=== PATIENT | female | born 1995 | race American Indian/Alaskan Native ===

== ENCOUNTER 2020-07-07 06:27 | Emergency (ER) | payer MEDICAID ==
[2020-07-07 06:52] VITALS: BP 130/70
[2020-07-07 07:38] LABS: HCG Qualitative,Urine Negative (Negative)
[2020-07-07 07:40] LABS: Bilirubin,Urine NEG (Negative); Blood,Urine SM (Negative); Color,Urine Amber (Yellow); Mucus,Urine FEW /HPF
[2020-07-07 07:41] LABS: WBC,Urine > 182.0 /HPF (0.0-6.0)
--- NOTE | 2020-07-07 08:27 | Emergency Department Report ---
<LIV GARCIA - Last Filed: 07/07/20 14:44> ED Female HPI - General Chief complaint: Abdominal Pain Stated complaint: POSSIBLE UTI Time Seen by Provider: 07/07/20 07:18 Source: patient Mode of arrival: Ambulatory Limitations: No Limitations - History of Present Illness Initial comments: 25-year-old obese female she states " I have a UTI". Patient states she woke up at 4:30 this morning with pain to the bottom of her stomach and since then she is having urinary frequency and voiding small amounts. She reports a history of urinary tract infections states that her last one was 1 year ago. Patient denies nausea, vomiting, fever chills, vaginal discharge, chest pain and shortness of breath. She is currently pain-free and in no acute distress. Her last menstrual period was on June 30, 2020 Radiation: suprapubic Severity scale (0 -10): 3 Quality: aching, other (Discomfort) Improves with: none Worsens with: none Are you Now?: No Associated Symptoms: denies other symptoms, abdominal pain, dysuria. denies: vaginal discharge, vaginal bleeding, nausea/vomiting, fever/chills, headaches, loss of appetite, hematuria, rash, seizure, shortness of breath, syncope, weakness - Related Data Sexually active: Yes Previous Rx's Medication Instructions Recorded Last Taken Type cephALEXin [Keflex] 500 mg PO Q12HR 7 Days #14 cap 07/07/20 Unknown Rx Allergies Allergy/AdvReac Type Severity Reaction Status Date / Time No Known Allergies Allergy Unverified 07/07/20 06:56 ED Review of Systems Comment: All other systems reviewed and negative Constitutional: denies: no symptoms reported, chills, fever ENT: denies: ear pain, throat pain, dental pain, hearing loss, epistaxis Respiratory: no symptoms reported Cardiovascular: denies: chest pain, palpitations, dyspnea on exertion, orthopnea Endocrine: no symptoms reported Gastrointestinal: denies: abdominal pain, nausea, vomiting, constipation Genitourinary: dysuria, frequency. denies: discharge Musculoskeletal: denies: back pain Skin: denies: rash, lesions Neurological: denies: headache, weakness Psychiatric: denies: anxiety, depression ED Past Medical Hx - Past Medical History Previous Medical History?: No - Surgical History Past Surgical History?: No - Social History Smoking Status: Never Smoker Substance Use Type: None - Medications Home Medications: Home Medications Medication Instructions Recorded Confirmed Last Taken Type cephALEXin [Keflex] 500 mg PO Q12HR 7 Days #14 cap 07/07/20 Unknown Rx ED Physical Exam - General Limitations: No Limitations General appearance: alert, in no apparent distress - Head Head exam: Present: atraumatic - Eye Eye exam: Present: normal appearance - ENT ENT exam: Present: normal exam, mucous membranes moist. Absent: TM's normal bilaterally - Respiratory Respiratory exam: Present: normal lung sounds bilaterally. Absent: respiratory distress, wheezes, rales, rhonchi - Cardiovascular Cardiovascular Exam: Present: regular rate, normal rhythm - GI/Abdominal GI/Abdominal exam: Present: soft, normal bowel sounds. Absent: distended, tenderness, guarding, rebound, rigid - Rectal Rectal exam: Present: deferred - Extremities Exam Extremities exam: Present: normal inspection, normal capillary refill - Back Exam Back exam: Present: normal inspection. Absent: CVA tenderness (R) - Neurological Exam Neurological exam: Present: alert, oriented X3 - Psychiatric Psychiatric exam: Present: normal affect - Skin Skin exam: Present: warm, dry, intact, normal color ED Course - Reevaluation(s) Reevaluation #1: 07/07/20 08:30 Well-appearing 25-year-old female in no distress note denies any pain at this time ED Medical Decision Making - Medical Decision Making 25-year-old female with a 4-hour complaint of feeling discomfort to her suprapubic region of her abdomen accompanied by urinary frequency and urgency and dysuria. Her exam is normal urine shows urinary tract infection. Urine culture pending. She will be discharged home with oral antibiotics increase fluids. And to decrease her soda intake Critical Care Time: No ED Disposition Clinical Impression: Urinary tract infection Qualifiers: Urinary tract infection type: acute cystitis Hematuria presence: with hematuria Qualified Code(s): N30.01 - Acute cystitis with hematuria Disposition: TO HOME OR SELFCARE Is pt being admited?: No Does the pt Need Aspirin: No Condition: Stable Instructions: Antibiotic Medicine, Adult, [id number], Urinary Tract Infection, Adult, Abdominal Pain (ED) Additional Instructions: Drink plenty fluids decrease your soda intake do not hold your urine for pee after sex. Follow-up with your primary care doctor if no improvement or for any worsening symptoms. Take all of the antibiotics as prescribed Prescriptions: cephALEXin [Keflex] 500 mg PO Q12HR 7 Days #14 cap Referrals: PRIMARY MD JOSE [Primary Care Provider] - 3-5 Days MICHAEL CLARKE MD [Staff Physician] - 3-5 Days Time of Disposition: 08:33 <LYLYAMIE - Last Filed: 07/08/20 06:35> ED Review of Systems ROS: Stated complaint: POSSIBLE UTI Other details as noted in HPI ED Course Vital Signs 07/07/20 07/07/20 07/07/20 06:51 08:30 08:57 Temperature 97.9 F Pulse Rate 80 85 Respiratory 16 18 18 Rate Blood Pressure 130/70 O2 Sat by Pulse 98 99 99 Oximetry Critical care attestation.: If time is entered above; I have spent that time in minutes in the direct care of this critically ill patient, excluding procedure time. ED Disposition Is pt being admited?: No Does the pt Need Aspirin: No
== END 2020-07-07 08:55 | disposition home or self-care (01) ==
LOC: ED 06:27
DX: N39.0 Urinary tract infection, site not specified (principal); Z79.899 Other long term (current) drug therapy
CPT/HCPCS: 81001; 81025; 87086

== ENCOUNTER 2020-11-02 22:58 | Emergency (ER) | payer MEDICAID ==
[2020-11-03] MEDS ORDERED: AMOXICILLIN/K CLAV 875/125MG TAB PO ONE (03:56)
[2020-11-03] MEDS ORDERED: ACETAMINOPHEN 500 MG TAB PO ONE (03:56)
[2020-11-03] MEDS ORDERED: dexAMETHasone 20 MG/5 ML VIAL IM ONE (03:56)
[2020-11-03] MEDS ORDERED: LIDOCAINE VISCOUS 2% 15 ML ORAL LIQD PO ONE (03:56)
[2020-11-03] MEDS ORDERED: KETOROLAC 30 MG/1 ML INJ IM ONE (03:56)
--- NOTE | 2020-11-03 05:05 | Emergency Department Report ---
ED General Adult HPI - General Chief complaint: Sore Throat Stated complaint: THROAT AND EAR PAIN Source: patient Mode of arrival: Ambulatory Limitations: No Limitations - History of Present Illness Initial comments: Patient is a 25-year-old -[place] female with no past medical history presents to the ED with complaint of acute onset persistent severe sore throat with dysphagia and neck pain for the last 1 week. Patient states that she has been taking [id number] medication with no relief. Patient states that she has not eaten any food in the last 2 days because of worsening sore throat. Patient states that no one else at home is at similar symptoms. Patient denies dizziness, syncope, fever, chills, cough, nasal and sinus congestion, chest pain or shortness of breath, abdominal pain, dysuria, urinary frequency and urgency, nausea and vomiting or diarrhea. MD Complaint: Sore throat, dysphagia; neck pain -: Sudden, week(s) (1) Location: mouth Radiation: non-radiation Severity scale (0 -10): 9 Quality: aching, sharp Consistency: constant Improves with: none Worsens with: eating Associated Symptoms: denies other symptoms, loss of appetite, malaise. denies: confusion, chest pain, cough, diaphoresis, fever/chills, headaches, nausea/vomiting, rash, shortness of breath, syncope, weakness, other Treatments Prior to Arrival: none - Related Data Previous Rx's Medication Instructions Recorded Last Taken Type cephALEXin [Keflex] 500 mg PO Q12HR 7 Days #14 cap 07/07/20 Unknown Rx Ibuprofen [Motrin] 800 mg PO Q8HR PRN #30 tablet 11/03/20 Unknown Rx Lidocaine Viscous 2% 10 ml PO Q4H PRN #120 ml 11/03/20 Unknown Rx Penicillin V Potassium 500 mg PO Q6H #40 tablet 11/03/20 Unknown Rx predniSONE [Deltasone] 40 mg PO QDAY #10 tab 11/03/20 Unknown Rx Allergies Allergy/AdvReac Type Severity Reaction Status Date / Time No Known Allergies Allergy Unverified 07/07/20 06:56 ED Review of Systems ROS: Stated complaint: THROAT AND EAR PAIN Other details as noted in HPI Constitutional: denies: chills, fever Eyes: denies: eye pain, eye discharge, vision change ENT: throat pain (Sore throat with dysphagia). denies: ear pain Respiratory: denies: cough, shortness of breath, wheezing Cardiovascular: denies: chest pain, palpitations Endocrine: no symptoms reported Gastrointestinal: denies: abdominal pain, nausea, diarrhea Genitourinary: denies: urgency, dysuria, discharge Musculoskeletal: denies: back pain, joint swelling, arthralgia Skin: denies: rash, lesions Neurological: denies: headache, weakness, paresthesias Psychiatric: denies: anxiety, depression Hematological/Lymphatic: denies: easy bleeding, easy bruising ED Past Medical Hx - Past Medical History Previous Medical History?: No - Surgical History Past Surgical History?: No - Social History Smoking Status: Never Smoker Substance Use Type: None - Medications Home Medications: Home Medications Medication Instructions Recorded Confirmed Last Taken Type cephALEXin [Keflex] 500 mg PO Q12HR 7 Days #14 cap 07/07/20 Unknown Rx Ibuprofen [Motrin] 800 mg PO Q8HR PRN #30 tablet 11/03/20 Unknown Rx Lidocaine Viscous 2% 10 ml PO Q4H PRN #120 ml 11/03/20 Unknown Rx Penicillin V Potassium 500 mg PO Q6H #40 tablet 11/03/20 Unknown Rx predniSONE [Deltasone] 40 mg PO QDAY #10 tab 11/03/20 Unknown Rx ED Physical Exam - General Limitations: No Limitations General appearance: alert, in no apparent distress - Head Head exam: Present: atraumatic, normocephalic, normal inspection - Eye Eye exam: Present: normal appearance, PERRL, EOMI Pupils: Present: normal accommodation - ENT ENT exam: Present: mucous membranes moist, TM's normal bilaterally, normal external ear exam, other (Erythematous oropharynx with mildly swollen tonsils with patchy white exudates) - Neck Neck exam: Present: normal inspection, full ROM, lymphadenopathy. Absent: tenderness - Respiratory Respiratory exam: Present: normal lung sounds bilaterally. Absent: respiratory distress, wheezes, rales, rhonchi, chest wall tenderness, accessory muscle use, decreased breath sounds, prolonged expiratory - Cardiovascular Cardiovascular Exam: Present: regular rate, normal rhythm. Absent: systolic murmur, diastolic murmur, rubs, gallop - GI/Abdominal GI/Abdominal exam: Present: soft, normal bowel sounds - Extremities Exam Extremities exam: Present: normal inspection - Back Exam Back exam: Present: normal inspection - Neurological Exam Neurological exam: Present: alert, oriented X3 - Psychiatric Psychiatric exam: Present: normal affect, normal mood - Skin Skin exam: Present: warm, dry, intact, normal color. Absent: rash ED Course Vital Signs 11/03/20 11/03/20 11/03/20 03:14 04:12 04:15 Temperature 98 F Pulse Rate 74 Respiratory 18 18 18 Rate Blood Pressure 134/77 [Left] O2 Sat by Pulse 100 Oximetry ED Medical Decision Making - Medical Decision Making This is a 25-year-old -[place] female with no past medical history presents to the ED with complaint of acute onset persistent severe sore throat with dysphagia and neck pain for the last 1 week. Patient states that she has been taking [id number] medication with no relief. Patient states that she has not eaten any food in the last 2 days because of worsening sore throat. Patient states that no one else at home is at similar symptoms. In the ED, patient is alert and oriented x3 and is not in distress but appears uncomfortable in the physical exam. Patient was treated in the ED based on the physical exam findings in the oropharynx without any suggestive signs of peritonsillar abscess. Patient was treated in the ED with steroids, pain medication and also given initial oral antibiotics in the ED. On reevaluation, patient's pain is well controlled medications. Patient will discharge home on pain medications and antibiotics and advised to follow-up with her primary care physician in 7 to 10 days for reevaluation or return to the ED immediately if symptoms get worse. - Differential Diagnosis Strep pharyngitis; tonsillitis; URI; peritonsillar abscess; laryngitis Critical care attestation.: If time is entered above; I have spent that time in minutes in the direct care of this critically ill patient, excluding procedure time. ED Disposition Clinical Impression: Acute bacterial pharyngitis, Anterior cervical lymphadenopathy Acute tonsillitis, unspecified Qualifiers: Pharyngitis/tonsillitis etiology: unspecified etiology Qualified Code(s): J03.90 - Acute tonsillitis, unspecified Disposition: - TO HOME OR SELFCARE Is pt being admited?: No Does the pt Need Aspirin: No Condition: Stable Instructions: Upper Respiratory Infection, Adult, [id number], Tonsillitis, [id number], Pharyngitis, [id number], Lymphadenopathy Additional Instructions: Your symptoms and signs are likely due to bacterial infection in your throat causing tonsillitis or pharyngitis. Therefore take medications with food, drink plenty of fluids and follow-up with your primary care physician in 7 to 10 days for reevaluation. Return to the ED immediately if your symptoms get worse. Prescriptions: predniSONE [Deltasone] 40 mg PO QDAY #10 tab Lidocaine Viscous 2% 10 ml PO Q4H PRN #120 ml PRN Reason: Sore Throat Ibuprofen [Motrin] 800 mg PO Q8HR PRN #30 tablet PRN Reason: Pain , Severe (7-10) Penicillin V Potassium 500 mg PO Q6H #40 tablet Referrals: MICHAEL CLARKE MD [Staff Physician] - 7-10 days Forms: Work/School Release Form(ED) Time of Disposition: 05:06 Print Language: LAO
[2020-11-03 05:30] VITALS: BP 132/68
== END 2020-11-03 05:29 | disposition home or self-care (01) ==
LOC: ED 22:58
DX: R59.0 Localized enlarged lymph nodes (principal); J02.8 Acute pharyngitis due to other specified organisms; B96.89 Other specified bacterial agents as the cause of diseases classified elsewhere; Z79.1 Long term (current) use of non-steroidal anti-inflammatories (NSAID); Z79.899 Other long term (current) drug therapy
CPT/HCPCS: 96372; 99282; J1100; J1885